=== PATIENT | female | born 1960 | race Caucasian/White ===

== ENCOUNTER → 2017-06-04 | Outpatient (CLI) | payer OTHER ==
[~2017-06-04] MED LIST: ACID1TAB7 PO; AMIT25TA PO; ATOR10TA9 PO; AZAT50TA9 PO; CIPR500T87 PO; HYDR12.53 PO; LEVO500T47 PO; LISI1TAB3 PO; LISI1TAB7 PO; MAGN400T26 PO; MESA250C PO; MESA500C PO; METR500T8 PO; OMEP-110 PO
== END | disposition home or self-care (01) ==
LOC: CFH 11:17
PROVIDERS: ATTEND Family Medicine
DX: Z12.31 Encounter for screening mammogram for malignant neoplasm of breast (principal)
CPT/HCPCS: G0202

== ENCOUNTER 2018-01-28 13:18 | Inpatient (IN) | payer OTHER ==
[~2018-01-28] VITALS: Ht 160 cm; Wt 96.1 kg
[2018-01-28] MEDS ORDERED: AMIT150T PO (13:38)
[2018-01-28] MEDS ORDERED: ALLO300T PO (13:38)
[2018-01-28] MEDS ORDERED: SODIUM CHLORIDE 0.9% 1,000ML IVBOLUS ONE (14:30)
[2018-01-28] MEDS ORDERED: SODIUM CHLORIDE FLUSH 10ML SYR IVF ONE (14:30)
[2018-01-28 15:22] LABS: ANION GAP 11 mmol/L (5-15); CALCIUM 8.6 mg/dL (8.5-10.1); CHLORIDE 104 mmol/L (98-107); CREATININE 2.74 mg/dL (0.55-1.02)
[2018-01-28 16:31] LABS: CULTURE INDICATED? YES; MICROSCOPIC INDICATED
[2018-01-28 16:35] LABS: MEAN CORPUSCULAR HEMOGLOBIN 40.3 pg (27.0-34.8); MEAN CORPUSCULAR VOLUME 115.1 fL (80-100); MEAN PLATELET VOLUME 8.9 fL (7.4-10.4); RED BLOOD COUNT 1.18 x10^6/uL (3.82-5.3); RED CELL DISTRIBUTION WIDTH 17.5 % (9.6-15.2)
[2018-01-28 16:37] LABS: PLATELET COUNT 15 x10^3/uL (130-400)
[2018-01-28 16:38] LABS: HEMOGRAM NOTE RECHECKED
[2018-01-28 16:40] LABS: MD YES
[2018-01-28 16:47] LABS: <PLATELET ESTIMATE> DECREASED; <PLT MORPHOLOGY> NORMAL PLT MORPH; BAND#(MANUAL) 0.12 x10^3/uL; BANDS%(MANUAL) 10 % (0-7); EOS#(MANUAL) 0.01 x10^3/uL (0.0-0.4); EOS% (MANUAL) 1 % (1-7); LYMPHS% (MANUAL) 33 % (22-44); METAMYELOCYTES# (MANUAL) 0.01 x10^3/uL (0-0); METAMYELOCYTES% (MANUAL) 1 % (0-1); MONOS#(MANUAL) 0.01 x10^3/uL (0.3-2.7); MONOS% (MANUAL) 1 % (2-9); SEG#(MANUAL) 0.65 x10^3/uL (1.8-6.8); SEGS% (MANUAL) 54 % (42-75); TOXIC GRAN 2+
[2018-01-28 16:48] LABS: ANISOCYTOSIS 1+
[2018-01-28 17:43] LABS: INTERNATIONAL NORMALIZED RATIO 1.01 (0.93-1.1); PROTHROMBIN TIME 10.5 Seconds (9.6-11.5)
[2018-01-28] MEDS ORDERED: ONDANSETRON 2MG/ML, 2ML IVPush PRN (18:00)
[2018-01-28] MEDS ORDERED: POLYETHYLENE GLYCOL 17 GM PACKET PO PRN (18:00)
[2018-01-28] MEDS ORDERED: NOREPINEPHRINE 4 MG in SODIUM CHLORIDE 0.9% 246 ML IV PRN (18:00)
[2018-01-28] MEDS ORDERED: BISACODYL 10 MG SUPP PR PRN (18:00)
[2018-01-28 18:19] VITALS: BP 105/53
[2018-01-28 18:31] VITALS: BP 96/56
[2018-01-28] MEDS ORDERED: MEROPENEM 1 GM in SODIUM CHLORIDE 0.9% 100 ML IV ONE (20:00)
[2018-01-28 20:24] VITALS: BP 110/57
[2018-01-28 20:28] VITALS: BP 107/58
[2018-01-28 20:45] VITALS: BP 100/54
[2018-01-28] MEDS: LINEZOLID PMX 600MG/300ML 300 ML IV SCH (22:08)
[2018-01-28] MEDS: SODIUM CHLORIDE 0.9% 1,000 ML IV SCH (22:08)
[2018-01-28 22:27] VITALS: BP 125/56
[2018-01-29 03:30] VITALS: BP 118/71
[2018-01-29 04:09] LABS: CLOSTRIDIUM DIFFICILE ANTIGEN NEGATIVE; CLOSTRIDIUM DIFFICILE TOXIN NEGATIVE (Negative)
[2018-01-29] MEDS: LINEZOLID PMX 600MG/300ML 300 ML IV SCH ×2 (05:38→18:27)
[2018-01-29] MEDS: ACETAMINOPHEN 325 MG TABLET PO PRN (06:23)
[2018-01-29 07:07] LABS: ALANINE AMINOTRANSFERASE 13 U/L (12-78); ALBUMIN 2.4 g/dL (3.4-5.0); ANION GAP 8 mmol/L (5-15); CALCIUM 8.1 mg/dL (8.5-10.1); CHLORIDE 107 mmol/L (98-107)
[2018-01-29 07:10] LABS: ALKALINE PHOSPHATASE 137 U/L (45-117); BILIRUBIN,TOTAL 2.1 mg/dL (0.2-1.0); TOTAL PROTEIN 6.2 g/dL (6.4-8.2)
[2018-01-29 07:11] LABS: MEAN CORPUSCULAR HGB CONC 35.9 g/dL (32.4-35.8); MEAN CORPUSCULAR VOLUME 100.4 fL (80-100); MEAN PLATELET VOLUME 8.8 fL (7.4-10.4); RED BLOOD COUNT 1.98 x10^6/uL (3.82-5.3)
[2018-01-29 07:14] LABS: MD YES
[2018-01-29 07:16] LABS: PLATELET COUNT 18 x10^3/uL (130-400)
[2018-01-29 07:21] LABS: LYMPH#(MANUAL) 0.61 x10^3/uL (1-3.4); LYMPHS% (MANUAL) 51 % (22-44)
[2018-01-29 07:22] LABS: ANISOCYTOSIS 2+; BAND#(MANUAL) 0.02 x10^3/uL; BANDS%(MANUAL) 2 % (0-7); EOS#(MANUAL) 0.05 x10^3/uL (0.0-0.4); EOS% (MANUAL) 4 % (1-7); SEG#(MANUAL) 0.52 x10^3/uL (1.8-6.8); SEGS% (MANUAL) 43 % (42-75)
[2018-01-29 07:23] LABS: <PLATELET ESTIMATE> DECREASED; <PLT MORPHOLOGY> NORMAL PLT MORPH; TOXIC GRAN 2+
[2018-01-29] MEDS: PANTOPRAZOLE 40 MG IV IVPush SCH (09:09)
[2018-01-29] MEDS: MEROPENEM 1 GM in SODIUM CHLORIDE 0.9% 100 ML IV SCH ×2 (09:09→22:33)
[2018-01-29 11:04] LABS: ABSOLUTE RETICS # 0.034 x10^6/uL (0.5-2.5); RETICULOCYTE COUNT % 1.7 % (0.5-1.5)
[2018-01-29 11:06] LABS: RED BLOOD COUNT 1.99 x10^6/uL (3.82-5.3)
[2018-01-29] MEDS ORDERED: MIDAZOLAM 1 MG/ML, 5ML ONE ×2 (11:17→11:18)
[2018-01-29] MEDS ORDERED: FENTANYL PF 100 MCG/2ML ONE (11:17)
[2018-01-29] MEDS ORDERED: NALOXONE 1 MG/ML, 2ML ONE (11:18)
[2018-01-29] MEDS ORDERED: FLUMAZENIL 0.1 MG/1 ML, 5ML ONE (11:18)
[2018-01-29] MEDS ORDERED: LIDOCAINE-MPF 2% ,5ML ONE (11:27)
[2018-01-29 11:37] LABS: FOLATE LEVEL 9.7 ng/mL (3.1-17.5); THYROID STIMULATING HORMONE 0.426 mIU/L (0.358-3.740)
[2018-01-29 13:47] LABS: ANA SCREEN POSITIVE (Negative); ANTI-NUCLEAR ANTIBODY PATTERN HOMOGENOUS
[2018-01-29] MEDS: SODIUM CHLORIDE 0.9% 1,000 ML IV SCH (18:29)
[2018-01-29] MEDS ORDERED: DIPHENHYDRAMINE 50 MG/ML, 1ML IVPush ONE (20:00)
[2018-01-29] MEDS ORDERED: ACETAMINOPHEN 325 MG TABLET PO ONE (20:00)
[2018-01-29 21:18] VITALS: BP 106/57
[2018-01-29 22:43] VITALS: BP 99/63
[2018-01-29 23:04] VITALS: BP 93/60
[2018-01-29 23:19] VITALS: BP 92/60
[2018-01-30 00:55] VITALS: BP 90/56
[2018-01-30 02:01] VITALS: BP 90/61
[2018-01-30 02:29] VITALS: BP 90/61
[2018-01-30] MEDS: SODIUM CHLORIDE 0.9% 1,000 ML IV SCH (04:50)
[2018-01-30] MEDS: PANTOPRAZOLE 40 MG IV IVPush SCH (07:57)
[2018-01-30] MEDS: LINEZOLID PMX 600MG/300ML 300 ML IV SCH (07:58)
[2018-01-30 08:12] VITALS: BP 103/70
[2018-01-30 08:32] LABS: ALANINE AMINOTRANSFERASE 13 U/L (12-78); ALBUMIN 2.3 g/dL (3.4-5.0); ANION GAP 7 mmol/L (5-15); CALCIUM 7.8 mg/dL (8.5-10.1); CHLORIDE 110 mmol/L (98-107); CREATININE 1.51 mg/dL (0.55-1.02)
[2018-01-30 08:34] LABS: ALKALINE PHOSPHATASE 134 U/L (45-117); BILIRUBIN,TOTAL 1.6 mg/dL (0.2-1.0); TOTAL PROTEIN 5.9 g/dL (6.4-8.2)
[2018-01-30 08:43] LABS: MEAN CORPUSCULAR HEMOGLOBIN 35.2 pg (27.0-34.8); MEAN CORPUSCULAR HGB CONC 35.6 g/dL (32.4-35.8); RED BLOOD COUNT 2.16 x10^6/uL (3.82-5.3); RED CELL DISTRIBUTION WIDTH 23.5 % (9.6-15.2)
[2018-01-30 08:46] LABS: PLATELET COUNT 13 x10^3/uL (130-400)
[2018-01-30 08:47] LABS: MD YES
[2018-01-30 08:51] LABS: SEG#(MANUAL) 0.49 x10^3/uL (1.8-6.8); SEGS% (MANUAL) 49 % (42-75)
[2018-01-30 08:52] LABS: <PLATELET ESTIMATE> DECREASED; ANISOCYTOSIS 2+; EOS#(MANUAL) 0.05 x10^3/uL (0.0-0.4); EOS% (MANUAL) 5 % (1-7); LYMPH#(MANUAL) 0.44 x10^3/uL (1-3.4); LYMPHS% (MANUAL) 44 % (22-44); MONOS#(MANUAL) 0.02 x10^3/uL (0.3-2.7); MONOS% (MANUAL) 2 % (2-9)
[2018-01-30 08:53] LABS: <PLT MORPHOLOGY> NORMAL PLT MORPH; TOXIC GRAN 2+
[2018-01-30] MEDS ORDERED: STERILE WATER IV ONE (09:30)
[2018-01-30] MEDS ORDERED: MAGNESIUM SULFATE IV ONE (09:30)
[2018-01-30] MEDS: MEROPENEM 1 GM in SODIUM CHLORIDE 0.9% 100 ML IV SCH (10:19)
[2018-01-30 13:32] VITALS: BP 100/66
[2018-01-30 19:41] VITALS: BP 106/66
[2018-01-30] MEDS: LIDODERM 5% PATCH TD SCH (20:31)
[2018-01-30] MEDS: CEFTRIAXONE PMX 2GM/50ML 50 ML IV SCH (20:31)
[2018-01-31 00:57] VITALS: BP 92/56
[2018-01-31 04:24] LABS: MEAN CORPUSCULAR HEMOGLOBIN 35.6 pg (27.0-34.8); MEAN CORPUSCULAR HGB CONC 35.9 g/dL (32.4-35.8); MEAN CORPUSCULAR VOLUME 99.3 fL (80-100); MEAN PLATELET VOLUME 9.2 fL (7.4-10.4); RED BLOOD COUNT 2.05 x10^6/uL (3.82-5.3); RED CELL DISTRIBUTION WIDTH 23.6 % (9.6-15.2)
[2018-01-31 04:32] LABS: CHLORIDE 107 mmol/L (98-107)
[2018-01-31 04:40] LABS: ALANINE AMINOTRANSFERASE 14 U/L (12-78); ALBUMIN 2.2 g/dL (3.4-5.0); ALKALINE PHOSPHATASE 164 U/L (45-117); ANION GAP 10 mmol/L (5-15); CREATININE 1.28 mg/dL (0.55-1.02); TOTAL PROTEIN 5.8 g/dL (6.4-8.2)
[2018-01-31 04:44] LABS: PLATELET COUNT 14 x10^3/uL (130-400)
[2018-01-31 04:45] LABS: MD YES
[2018-01-31 05:56] LABS: <PLATELET ESTIMATE> DECREASED; ANISOCYTOSIS 2+; BAND#(MANUAL) 0.01 x10^3/uL; BANDS%(MANUAL) 1 % (0-7); EOS#(MANUAL) 0.07 x10^3/uL (0.0-0.4); EOS% (MANUAL) 6 % (1-7); LYMPH#(MANUAL) 0.62 x10^3/uL (1-3.4); LYMPHS% (MANUAL) 56 % (22-44); SEG#(MANUAL) 0.41 x10^3/uL (1.8-6.8); SEGS% (MANUAL) 37 % (42-75); TOXIC GRAN 2+
[2018-01-31 05:57] LABS: <PLT MORPHOLOGY> NORMAL PLT MORPH
[2018-01-31 07:20] VITALS: BP 95/54
[2018-01-31] MEDS: PANTOPRAZOLE 40 MG IV IVPush SCH (07:54)
[2018-01-31] MEDS: predniSONE 50MG TABLET PO SCH (13:16)
[2018-01-31 14:00] VITALS: BP 108/59
[2018-01-31 20:30] VITALS: BP 104/68
[2018-01-31] MEDS: CEFTRIAXONE PMX 2GM/50ML 50 ML IV SCH (20:41)
[2018-01-31] MEDS: LIDODERM 5% PATCH TD SCH (20:42)
[2018-02-01 02:30] VITALS: BP 108/69
[2018-02-01 04:42] LABS: MEAN CORPUSCULAR HEMOGLOBIN 34.2 pg (27.0-34.8); MEAN CORPUSCULAR HGB CONC 34.5 g/dL (32.4-35.8); RED BLOOD COUNT 2.31 x10^6/uL (3.82-5.3); RED CELL DISTRIBUTION WIDTH 23.1 % (9.6-15.2)
[2018-02-01 04:43] LABS: PLATELET COUNT 14 x10^3/uL (130-400)
[2018-02-01 04:44] LABS: ALBUMIN 2.2 g/dL (3.4-5.0); ANION GAP 7 mmol/L (5-15); CALCIUM 8.6 mg/dL (8.5-10.1); CHLORIDE 109 mmol/L (98-107)
[2018-02-01 04:48] LABS: ALANINE AMINOTRANSFERASE 18 U/L (12-78); ALKALINE PHOSPHATASE 202 U/L (45-117); BILIRUBIN,TOTAL 0.8 mg/dL (0.2-1.0); CREATININE 1.14 mg/dL (0.55-1.02); TOTAL PROTEIN 6.4 g/dL (6.4-8.2)
[2018-02-01 05:35] LABS: MD YES
[2018-02-01 05:40] LABS: EOS#(MANUAL) 0.01 x10^3/uL (0.0-0.4); EOS% (MANUAL) 2 % (1-7); LYMPH#(MANUAL) 0.24 x10^3/uL (1-3.4); LYMPHS% (MANUAL) 40 % (22-44); SEG#(MANUAL) 0.35 x10^3/uL (1.8-6.8); SEGS% (MANUAL) 58 % (42-75)
[2018-02-01 05:41] LABS: <PLATELET ESTIMATE> DECREASED; <PLT MORPHOLOGY> NORMAL PLT MORPH; ANISOCYTOSIS 1+
[2018-02-01 07:25] VITALS: BP 110/74
[2018-02-01] MEDS: PANTOPRAZOLE 40 MG IV IVPush SCH (08:01)
[2018-02-01] MEDS: predniSONE 50MG TABLET PO SCH (12:32)
[2018-02-01 14:51] VITALS: BP 101/68
[2018-02-01 19:49] VITALS: BP 114/68
[2018-02-01] MEDS: CEFTRIAXONE PMX 2GM/50ML 50 ML IV SCH (20:41)
[2018-02-01] MEDS: LIDODERM 5% PATCH TD SCH (20:41)
[2018-02-02 04:26] LABS: ANION GAP 9 mmol/L (5-15); CALCIUM 8.6 mg/dL (8.5-10.1); CHLORIDE 111 mmol/L (98-107); CREATININE 1.06 mg/dL (0.55-1.02)
[2018-02-02 04:36] LABS: MEAN CORPUSCULAR HEMOGLOBIN 34.8 pg (27.0-34.8); MEAN CORPUSCULAR HGB CONC 34.8 g/dL (32.4-35.8); MEAN CORPUSCULAR VOLUME 100.1 fL (80-100); RED CELL DISTRIBUTION WIDTH 22.6 % (9.6-15.2)
[2018-02-02 05:39] LABS: MD YES
[2018-02-02 05:41] LABS: MEAN PLATELET VOLUME 9.2 fL (7.4-10.4)
[2018-02-02 05:42] LABS: PLATELET COUNT 19 x10^3/uL (130-400)
[2018-02-02 05:46] LABS: <PLATELET ESTIMATE> DECREASED; <PLT MORPHOLOGY> NORMAL PLT MORPH; ANISOCYTOSIS 1+; BAND#(MANUAL) 0.01 x10^3/uL; BANDS%(MANUAL) 1 % (0-7); LYMPH#(MANUAL) 0.31 x10^3/uL (1-3.4); LYMPHS% (MANUAL) 31 % (22-44); MONOS#(MANUAL) 0.02 x10^3/uL (0.3-2.7); MONOS% (MANUAL) 2 % (2-9); SEG#(MANUAL) 0.66 x10^3/uL (1.8-6.8); SEGS% (MANUAL) 66 % (42-75)
[2018-02-02 06:08] VITALS: BP 95/66
[2018-02-02 07:49] VITALS: BP 121/82
[2018-02-02] MEDS: PANTOPRAZOLE 40 MG IV IVPush SCH (07:54)
[2018-02-02] MEDS ORDERED: MAGNESIUM SULFATE PMX 2GM/50ML 50 ML IV ONE (09:00)
[2018-02-02] MEDS: predniSONE 50MG TABLET PO SCH (12:34)
[2018-02-02 16:56] VITALS: BP 110/77
[2018-02-02 19:43] VITALS: BP 114/71
[2018-02-02] MEDS: LIDODERM 5% PATCH TD SCH (20:30)
[2018-02-02] MEDS: CEFTRIAXONE PMX 2GM/50ML 50 ML IV SCH (21:09)
[2018-02-03 04:16] VITALS: BP 109/63
[2018-02-03 04:37] LABS: ANION GAP 6 mmol/L (5-15); CALCIUM 8.5 mg/dL (8.5-10.1); CHLORIDE 112 mmol/L (98-107)
[2018-02-03 04:38] LABS: CREATININE 1.03 mg/dL (0.55-1.02)
[2018-02-03 04:42] LABS: MEAN CORPUSCULAR HEMOGLOBIN 34.8 pg (27.0-34.8); MEAN CORPUSCULAR VOLUME 99.5 fL (80-100); MEAN PLATELET VOLUME 9.6 fL (7.4-10.4); RED BLOOD COUNT 2.19 x10^6/uL (3.82-5.3); RED CELL DISTRIBUTION WIDTH 21.8 % (9.6-15.2)
[2018-02-03 04:44] LABS: PLATELET COUNT 20 x10^3/uL (130-400)
[2018-02-03 05:47] LABS: MD YES
[2018-02-03 05:49] LABS: LYMPHS% (MANUAL) 44 % (22-44); SEGS% (MANUAL) 56 % (42-75)
[2018-02-03 05:54] LABS: <PLATELET ESTIMATE> DECREASED; <PLT MORPHOLOGY> NORMAL PLT MORPH; ANISOCYTOSIS 1+
[2018-02-03] MEDS: PANTOPRAZOLE 40 MG IV IVPush SCH (08:38)
[2018-02-03 08:59] VITALS: BP 121/79
[2018-02-03] MEDS: predniSONE 50MG TABLET PO SCH (13:37)
[2018-02-03 15:15] VITALS: BP 109/73
[2018-02-03 19:45] VITALS: BP 105/74
[2018-02-03] MEDS: LIDODERM 5% PATCH TD SCH (20:30)
[2018-02-04 02:00] VITALS: BP 107/73
[2018-02-04 04:53] LABS: ANION GAP 7 mmol/L (5-15); CALCIUM 8.8 mg/dL (8.5-10.1); CHLORIDE 111 mmol/L (98-107); CREATININE 0.99 mg/dL (0.55-1.02)
[2018-02-04 04:57] LABS: MEAN CORPUSCULAR HEMOGLOBIN 34.3 pg (27.0-34.8); MEAN CORPUSCULAR HGB CONC 34.5 g/dL (32.4-35.8); MEAN CORPUSCULAR VOLUME 99.3 fL (80-100); MEAN PLATELET VOLUME 8.8 fL (7.4-10.4); RED BLOOD COUNT 2.21 x10^6/uL (3.82-5.3); RED CELL DISTRIBUTION WIDTH 22.2 % (9.6-15.2)
[2018-02-04 04:58] LABS: PLATELET COUNT 27 x10^3/uL (130-400)
[2018-02-04 05:49] LABS: MD YES
[2018-02-04 05:54] LABS: ANISOCYTOSIS 1+; BAND#(MANUAL) 0.02 x10^3/uL; BANDS%(MANUAL) 2 % (0-7); BASOS#(MANUAL) 0.02 x10^3/uL (0-0.1); BASOS% (MANUAL) 2 % (0-1); EOS#(MANUAL) 0.02 x10^3/uL (0.0-0.4); EOS% (MANUAL) 2 % (1-7); LYMPH#(MANUAL) 0.32 x10^3/uL (1-3.4); LYMPHS% (MANUAL) 36 % (22-44); MONOS#(MANUAL) 0.04 x10^3/uL (0.3-2.7); MONOS% (MANUAL) 4 % (2-9); SEG#(MANUAL) 0.49 x10^3/uL (1.8-6.8); SEGS% (MANUAL) 54 % (42-75)
[2018-02-04 05:55] LABS: <PLATELET ESTIMATE> DECREASED; <PLT MORPHOLOGY> NORMAL PLT MORPH
[2018-02-04 05:56] LABS: TOXIC GRAN 1+
[2018-02-04 07:25] VITALS: BP 128/82
[2018-02-04] MEDS ORDERED: SODIUM POLY SULFONATE UDC 15 GM/60 ML PO ONE (07:30)
[2018-02-04] MEDS: PANTOPRAZOLE 40 MG IV IVPush SCH (07:54)
[2018-02-04] MEDS: ALLOPURINOL 100 MG TABLET PO SCH (08:46)
[2018-02-04 13:43] VITALS: BP 115/79
[2018-02-04 20:29] VITALS: BP 107/74
[2018-02-04] MEDS: LIDODERM 5% PATCH TD SCH (20:30)
[2018-02-05 02:01] VITALS: BP 109/72
[2018-02-05 04:56] LABS: MEAN CORPUSCULAR HGB CONC 34.3 g/dL (32.4-35.8); MEAN CORPUSCULAR VOLUME 99.2 fL (80-100); RED BLOOD COUNT 2.37 x10^6/uL (3.82-5.3); RED CELL DISTRIBUTION WIDTH 22.6 % (9.6-15.2)
[2018-02-05 05:03] LABS: ALANINE AMINOTRANSFERASE 87 U/L (12-78); ALBUMIN 2.3 g/dL (3.4-5.0); ANION GAP 9 mmol/L (5-15); CALCIUM 7.9 mg/dL (8.5-10.1); CHLORIDE 110 mmol/L (98-107); CREATININE 1.39 mg/dL (0.55-1.02)
[2018-02-05 05:04] LABS: ALKALINE PHOSPHATASE 213 U/L (45-117); BILIRUBIN,TOTAL 0.5 mg/dL (0.2-1.0)
[2018-02-05 05:42] LABS: MD YES; MEAN PLATELET VOLUME 8.4 fL (7.4-10.4); PLATELET COUNT 58 x10^3/uL (130-400)
[2018-02-05 05:46] LABS: BAND#(MANUAL) 0.02 x10^3/uL; BANDS%(MANUAL) 1 % (0-7); EOS#(MANUAL) 0.07 x10^3/uL (0.0-0.4); EOS% (MANUAL) 3 % (1-7); LYMPH#(MANUAL) 1.73 x10^3/uL (1-3.4); LYMPHS% (MANUAL) 75 % (22-44); METAMYELOCYTES# (MANUAL) 0.02 x10^3/uL (0-0); METAMYELOCYTES% (MANUAL) 1 % (0-1); MONOS#(MANUAL) 0.02 x10^3/uL (0.3-2.7); MONOS% (MANUAL) 1 % (2-9); NRBC % (MANUAL) 1 % (0-1); SEG#(MANUAL) 0.44 x10^3/uL (1.8-6.8); SEGS% (MANUAL) 19 % (42-75)
[2018-02-05 05:47] LABS: <PLATELET ESTIMATE> DECREASED; <PLT MORPHOLOGY> NORMAL PLT MORPH; ANISOCYTOSIS 1+; TOXIC GRAN 1+
[2018-02-05 07:46] VITALS: BP 116/76
[2018-02-05] MEDS: ALLOPURINOL 100 MG TABLET PO SCH (08:28)
[2018-02-05] MEDS: PANTOPRAZOLE 40 MG IV IVPush SCH (08:28)
[2018-02-05] MEDS: ACETAMINOPHEN 325 MG TABLET PO PRN (08:29)
[2018-02-05] MEDS ORDERED: COLCHICINE 0.6 MG TABLET PO SCH (12:30)
[2018-02-05 15:00] VITALS: BP 105/74
[2018-02-05 19:48] VITALS: BP 119/79
[2018-02-05] MEDS: LIDODERM 5% PATCH TD SCH (19:55)
[2018-02-06 03:40] VITALS: BP 107/64
[2018-02-06 05:02] LABS: ANION GAP 9 mmol/L (5-15); CALCIUM 8.5 mg/dL (8.5-10.1); CHLORIDE 109 mmol/L (98-107); CREATININE 1.06 mg/dL (0.55-1.02)
[2018-02-06 05:03] LABS: MEAN CORPUSCULAR HEMOGLOBIN 34.4 pg (27.0-34.8); MEAN CORPUSCULAR HGB CONC 34.7 g/dL (32.4-35.8); MEAN CORPUSCULAR VOLUME 99.2 fL (80-100); RED BLOOD COUNT 2.13 x10^6/uL (3.82-5.3)
[2018-02-06 05:27] LABS: MD YES
[2018-02-06 05:28] LABS: MEAN PLATELET VOLUME 8.9 fL (7.4-10.4); PLATELET COUNT 83 x10^3/uL (130-400)
[2018-02-06 05:33] LABS: <PLATELET ESTIMATE> DECREASED; <PLT MORPHOLOGY> NORMAL PLT MORPH; ANISOCYTOSIS 1+; LYMPH#(MANUAL) 1.58 x10^3/uL (1-3.4); LYMPHS% (MANUAL) 72 % (22-44); MONOS#(MANUAL) 0.13 x10^3/uL (0.3-2.7); MONOS% (MANUAL) 6 % (2-9); SEG#(MANUAL) 0.48 x10^3/uL (1.8-6.8); SEGS% (MANUAL) 22 % (42-75); TOXIC GRAN 1+
[2018-02-06 08:16] VITALS: BP 117/77
[2018-02-06] MEDS: ALLOPURINOL 100 MG TABLET PO SCH (09:16)
[2018-02-06] MEDS: PANTOPRAZOLE 40 MG IV IVPush SCH (09:16)
[2018-02-06 13:51] VITALS: BP 108/71
[2018-02-06 19:36] VITALS: BP 100/60
[2018-02-06] MEDS: LIDODERM 5% PATCH TD SCH (21:55)
[2018-02-07 02:50] VITALS: BP 112/76
[2018-02-07] MEDS: ALLOPURINOL 100 MG TABLET PO SCH (07:20)
[2018-02-07] MEDS ORDERED: PANTOPROZOLE 40MG TABLET PO SCH (07:30)
[2018-02-07 07:45] VITALS: BP 104/71
[2018-02-07 09:18] LABS: MEAN CORPUSCULAR HEMOGLOBIN 33.6 pg (27.0-34.8); MEAN CORPUSCULAR HGB CONC 33.9 g/dL (32.4-35.8); MEAN CORPUSCULAR VOLUME 99.1 fL (80-100); RED BLOOD COUNT 2.28 x10^6/uL (3.82-5.3); RED CELL DISTRIBUTION WIDTH 22.1 % (9.6-15.2)
[2018-02-07] MEDS ORDERED: ALLO100T30 PO (09:24)
[2018-02-07 09:27] LABS: ALANINE AMINOTRANSFERASE 55 U/L (12-78); ALBUMIN 2.3 g/dL (3.4-5.0); ANION GAP 8 mmol/L (5-15); CALCIUM 8.5 mg/dL (8.5-10.1); CHLORIDE 107 mmol/L (98-107); CREATININE 1.24 mg/dL (0.55-1.02)
[2018-02-07 09:29] LABS: ALKALINE PHOSPHATASE 199 U/L (45-117); BILIRUBIN,TOTAL 0.7 mg/dL (0.2-1.0); TOTAL PROTEIN 6.3 g/dL (6.4-8.2)
[2018-02-07 09:38] LABS: MEAN PLATELET VOLUME 8.5 fL (7.4-10.4); PLATELET COUNT 125 x10^3/uL (130-400)
[2018-02-07 09:40] LABS: MD YES
[2018-02-07 09:43] LABS: MONOS#(MANUAL) 0.13 x10^3/uL (0.3-2.7); MONOS% (MANUAL) 6 % (2-9)
[2018-02-07 09:44] LABS: <PLATELET ESTIMATE> DECREASED; <PLT MORPHOLOGY> NORMAL PLT MORPH; ANISOCYTOSIS 1+; LYMPH#(MANUAL) 1.52 x10^3/uL (1-3.4); LYMPHS% (MANUAL) 69 % (22-44); SEG#(MANUAL) 0.55 x10^3/uL (1.8-6.8); SEGS% (MANUAL) 25 % (42-75)
[2018-02-07 09:45] LABS: TOXIC GRAN 1+
[2018-02-07 13:41] VITALS: BP 112/75
== END 2018-02-07 15:15 | disposition home or self-care (01) | DRG 871 ==
LOC: ED 16:48 → EDIP 17:41 → CCU 18:57 → 3NW 01-29 18:52
PROVIDERS: ADMIT Hospitalist; ATTEND Hospitalist
PROC: 30233N1 Transfusion of Nonautologous Red Blood Cells into Peripheral Vein, Percutaneous Approach (ICD-10-PCS; principal; 2018-01-28)
PROC: 02HV33Z Insertion of Infusion Device into Superior Vena Cava, Percutaneous Approach (ICD-10-PCS; 2018-01-28)
PROC: 07DR3ZX Extraction of Iliac Bone Marrow, Percutaneous Approach, Diagnostic (ICD-10-PCS; 2018-01-29)
DX: A41.9 Sepsis, unspecified organism (principal); D61.1 Drug-induced aplastic anemia; N17.0 Acute kidney failure with tubular necrosis; K50.90 Crohn's disease, unspecified, without complications; B19.10 Unspecified viral hepatitis B without hepatic coma; N39.0 Urinary tract infection, site not specified; D69.59 Other secondary thrombocytopenia; E78.5 Hyperlipidemia, unspecified; I12.9 Hypertensive chronic kidney disease with stage 1 through stage 4 chronic kidney disease, or unspecified chronic kidney disease; K21.9 Gastro-esophageal reflux disease without esophagitis; M10.9 Gout, unspecified; N18.9 Chronic kidney disease, unspecified; B96.1 Klebsiella pneumoniae [K. pneumoniae] as the cause of diseases classified elsewhere; B19.20 Unspecified viral hepatitis C without hepatic coma; T50.905A Adverse effect of unspecified drugs, medicaments and biological substances, initial encounter; W18.30XA Fall on same level, unspecified, initial encounter; Y92.89 Other specified places as the place of occurrence of the external cause; Y93.89 Activity, other specified; Y99.2 Volunteer activity; Z85.41 Personal history of malignant neoplasm of cervix uteri; Z87.891 Personal history of nicotine dependence
CPT/HCPCS: 36415; 36569; 38222; 71045; 76770; 77012; 80048; 80053; 81001; 82040; 82607; 82728; 82746; 82784; 83010; 83540; 83550; 83605; 83615; 83735; 84100; 84145; 84155; 84165; 84443; 84550; 85014; 85018; 85025; 85045; 85060; 85097; 85384; 85610; 85651; 85730; 86038; 86039; 86078; 86430; 86705; 86706; 86803; 86850; 86900; 86923; 87040; 87077; 87081; 87086; 87186; 87205; 87324; 87340; 87806; 88237; 88264; 88280; 88305; 88311; 88313; 93005; 99156; 99157; 99291; J0696; J2020; J2185; J2250; J3010; J3475; J3490; C9113; G0475; J1200; J2310; J7030; J7512; P9040

== ENCOUNTER 2019-01-18 10:25 | Outpatient (CLI) | payer OTHER ==
[~2019-01-18 10:25] MED LIST changes: +ALLO100T30 PO; +ALLO300T PO; +AMIT150T PO; +HYDR12.517 PO; -HYDR12.53 PO; +METR-90 PO; -METR500T8 PO
[2019-01-18] MEDS ORDERED: RANI150T23 PO (11:10)
[2019-01-18] MEDS ORDERED: ACET-1600 PO (11:10)
== END 2019-01-18 23:59 | disposition home or self-care (01) ==
LOC: STAR 10:25
PROVIDERS: ATTEND Obstetrics & Gynecology Gynecology
DX: Z02.9 Encounter for administrative examinations, unspecified (principal)

== ENCOUNTER 2019-01-28 06:52 | Inpatient (IN) | payer OTHER ==
[~2019-01-28] VITALS: Ht 162.6 cm; Wt 107.0 kg
[~2019-01-28 06:52] MED LIST changes: +ACET-1600 PO; +RANI150T23 PO
[2019-01-28 07:31] VITALS: BP 162/93
[2019-01-28] MEDS ORDERED: LACTATED RINGERS 1,000 ML IV SCH (07:33)
[2019-01-28] MEDS ORDERED: AMIT150T PO (07:35)
[2019-01-28] MEDS ORDERED: GENTAMICIN 200 MG in SODIUM CHLORIDE 0.9% 50 ML IV ONE (08:30)
[2019-01-28] MEDS ORDERED: CLINDAMYCIN PMX 900MG/50ML 50 ML IVPB ONE (08:30)
[2019-01-28] MEDS ORDERED: FENTANYL PF 250 MCG/5ML ONE (08:58)
[2019-01-28] MEDS ORDERED: MIDAZOLAM 1 MG/ML, 2ML ONE (08:58)
[2019-01-28] MEDS ORDERED: LIDOCAINE-MPF 2% ,5ML ONE (09:06)
[2019-01-28] MEDS ORDERED: PROMETHAZINE 25 MG/ML, 1ML IV PRN (09:30)
[2019-01-28] MEDS ORDERED: LORazepam 2 MG/ML, 1ML IVPush PRN (09:30)
[2019-01-28] MEDS ORDERED: PROMETHAZINE 25 MG SUPP PR PRN (09:30)
[2019-01-28] MEDS ORDERED: FENTANYL PF 100 MCG/2ML IV PRN (09:30)
[2019-01-28] MEDS ORDERED: ONDANSETRON 2MG/ML, 2ML IV PRN ×2 (09:30→15:00)
[2019-01-28] MEDS ORDERED: DIAZEPAM 5 MG/ML, 2ML IVPush PRN (09:30)
[2019-01-28] MEDS ORDERED: OXYcodone 5 MG/5 ML ORAL.SOL UDC PO PRN (09:30)
[2019-01-28] MEDS ORDERED: ACETAMINOPHEN 325 MG TABLET PO PRN (09:30)
[2019-01-28] MEDS ORDERED: ONDANSETRON ODT 8 MG PO PRN (09:30)
[2019-01-28] MEDS ORDERED: ONDANSETRON 2MG/ML, 2ML ONE (09:39)
[2019-01-28] MEDS ORDERED: NEOSTIGMINE 1 MG/ML, 10ML ONE (09:39)
[2019-01-28] MEDS ORDERED: PROPOFOL 10 MG/ML, 20ML ONE (09:39)
[2019-01-28] MEDS ORDERED: CEFAZOLIN 1,000 MG ONE (09:39)
[2019-01-28] MEDS ORDERED: DEXAMETHASONE 4 MG/ML, 1ML ONE (09:39)
[2019-01-28] MEDS ORDERED: GLYCOPYRROLATE 0.2MG/1ML, 5ML ONE (09:39)
[2019-01-28] MEDS ORDERED: ROCURONIUM 10MG/ML,5ML ONE (09:39)
[2019-01-28] MEDS ORDERED: SUCCINYLCHOLINE 20 MG/ML, 10ML ONE (09:39)
[2019-01-28] MEDS ORDERED: FENTANYL PF 100 MCG/2ML ONE ×2 (09:59→11:30)
[2019-01-28] MEDS ORDERED: PROPOFOL 50 ML ONE (10:16)
[2019-01-28] MEDS ORDERED: FLUORESCEIN SODIUM 500 MG/5 ML ONE (10:36)
[2019-01-28] MEDS ORDERED: HYDROmorphone 2 MG/ML, 1ML ONE (11:30)
[2019-01-28] MEDS: HYDROmorphone 2 MG/ML, 1ML IVPush PRN ×2 (11:35→12:00)
[2019-01-28] MEDS ORDERED: KETOROLAC 30 MG/1 ML ONE (11:56)
[2019-01-28] MEDS ORDERED: KETOROLAC 30 MG/1 ML IVPush STA (11:57)
[2019-01-28] MEDS ORDERED: OXYcodone 5 MG/5 ML ORAL.SOL UDC ONE (12:06)
[2019-01-28] MEDS ORDERED: KETOROLAC 30 MG/1 ML IVPush ONE (12:30)
[2019-01-28 13:52] VITALS: BP 157/94
[2019-01-28] MEDS ORDERED: INSTRUCTION SEE COMMENTS XX PRN (15:00)
[2019-01-28] MEDS: IBUPROFEN 600 MG TABLET PO SCH ×2 (15:13→22:44)
[2019-01-28] MEDS ORDERED: morphine SULFATE 10 MG/ML, 1ML IV PRN (16:00)
[2019-01-28] MEDS: DOCUSATE 100 MG CAPSULE PO SCH (21:00)
[2019-01-28 21:15] VITALS: BP 132/77
[2019-01-28] MEDS: LACTATED RINGERS 1,000 ML IV SCH (22:44)
[2019-01-28] MEDS: ENOXAPARIN 40 MG/0.4 ML SQ SCH (22:44)
[2019-01-29 00:12] VITALS: BP 128/81
[2019-01-29 03:59] VITALS: BP 130/84
[2019-01-29] MEDS ORDERED: CLINDAMYCIN PMX 900MG/50ML 50 ML IVPB ONE (05:00)
[2019-01-29] MEDS: IBUPROFEN 600 MG TABLET PO SCH ×4 (05:47→21:25)
[2019-01-29] MEDS: OXYcodone/APAP 5/325MG TABLET PO PRN ×4 (05:47→20:06)
[2019-01-29 07:34] VITALS: BP 149/88
[2019-01-29] MEDS: DOCUSATE 100 MG CAPSULE PO SCH ×2 (08:41→21:25)
[2019-01-29] MEDS: LACTATED RINGERS 1,000 ML IV SCH ×2 (12:00→22:00)
[2019-01-29 13:34] VITALS: BP 115/71
[2019-01-29 18:44] VITALS: BP 121/77
[2019-01-29] MEDS: ENOXAPARIN 40 MG/0.4 ML SQ SCH (23:23)
[2019-01-30] MEDS: OXYcodone/APAP 5/325MG TABLET PO PRN ×5 (00:07→21:46)
[2019-01-30 00:26] VITALS: BP 122/71
[2019-01-30] MEDS: LACTATED RINGERS 1,000 ML IV SCH ×2 (04:44→16:59)
[2019-01-30] MEDS: IBUPROFEN 600 MG TABLET PO SCH ×2 (05:05→10:29)
[2019-01-30 05:35] LABS: CREATININE 2.11 mg/dL (0.55-1.02)
[2019-01-30 07:17] VITALS: BP 93/60
[2019-01-30] MEDS: DOCUSATE 100 MG CAPSULE PO SCH ×2 (08:44→19:42)
[2019-01-30 14:28] VITALS: BP 115/74
[2019-01-30 16:23] LABS: CALCIUM 8.6 mg/dL (8.5-10.1); CHLORIDE 106 mmol/L (98-107)
[2019-01-30 16:27] LABS: ALANINE AMINOTRANSFERASE 26 U/L (12-78); ALBUMIN 2.9 g/dL (3.4-5.0); ALKALINE PHOSPHATASE 79 U/L (45-117); ANION GAP 9 mmol/L (5-15); BILIRUBIN,TOTAL 0.6 mg/dL (0.2-1.0); CREATININE 2.49 mg/dL (0.55-1.02); TOTAL PROTEIN 6.8 g/dL (6.4-8.2)
[2019-01-30] MEDS ORDERED: PHARMACY MAY ADJ FOR RENAL FX MC PRN (19:30)
[2019-01-30] MEDS: LACTATED RINGERS 1,000 ML IV ONE ×2 (19:41→21:30)
[2019-01-30 20:11] VITALS: BP 112/64
[2019-01-30] MEDS ORDERED: ENOXAPARIN 30 MG/0.3 ML SQ SCH (23:00)
[2019-01-30 23:53] LABS: MICROSCOPIC NOT IND
[2019-01-30 23:57] LABS: CULTURE INDICATED? NO; POTASSIUM,URINE RANDOM 29 mmol/L; SODIUM,URINE RANDOM 26 mmol/L
[2019-01-31 00:01] LABS: CHLORIDE,URINE RANDOM < 10 mmol/L
[2019-01-31 02:26] VITALS: BP 132/82
[2019-01-31] MEDS: OXYcodone/APAP 5/325MG TABLET PO PRN ×5 (03:17→21:38)
[2019-01-31] MEDS: LACTATED RINGERS 1,000 ML IV SCH ×3 (03:18→23:08)
[2019-01-31 05:06] LABS: BASOPHILS # (AUTO) 0.03 x10^3/uL (0-0.1); BASOPHILS % (AUTO) 1 % (0-1); EOSINOPHILS # (AUTO) 0.07 x10^3/uL (0-0.4); EOSINOPHILS % (AUTO) 1 % (1-7); LYMPHOCYTES # (AUTO) 2.01 x10^3/uL (1-3.4); LYMPHOCYTES % (AUTO) 32 % (22-44); MD NO; MEAN CORPUSCULAR HEMOGLOBIN 35.4 pg (27.0-34.8); MEAN CORPUSCULAR HGB CONC 32.9 g/dL (32.4-35.8); MEAN CORPUSCULAR VOLUME 107.6 fL (80-100); MEAN PLATELET VOLUME 7.6 fL (7.4-10.4); MONOCYTES # (AUTO) 0.37 x10^3/uL (0.2-0.8); MONOCYTES % (AUTO) 6 % (2-9); NEUTROPHILS # (AUTO) 3.73 x10^3/uL (1.8-6.8); NEUTROPHILS % (AUTO) 60 % (42-75); PLATELET COUNT 147 x10^3/uL (130-400); RED BLOOD COUNT 3.11 x10^6/uL (3.82-5.3); RED CELL DISTRIBUTION WIDTH 16.8 % (9.6-15.2)
[2019-01-31 05:09] LABS: ANION GAP 9 mmol/L (5-15); CALCIUM 8.3 mg/dL (8.5-10.1); CHLORIDE 108 mmol/L (98-107); CREATININE 2.32 mg/dL (0.55-1.02)
[2019-01-31 06:27] VITALS: BP 143/70
[2019-01-31] MEDS: DOCUSATE 100 MG CAPSULE PO SCH ×2 (08:39→20:58)
[2019-01-31 13:56] VITALS: BP 154/79
[2019-01-31 20:25] VITALS: BP_SYST 134; BP_SYST 154; BP_DIAS 80
[2019-02-01] MEDS: OXYcodone/APAP 5/325MG TABLET PO PRN ×2 (02:37→09:28)
[2019-02-01 02:54] VITALS: BP 110/73
[2019-02-01 07:04] LABS: BASOPHILS # (AUTO) 0.03 x10^3/uL (0-0.1); BASOPHILS % (AUTO) 0 % (0-1); EOSINOPHILS # (AUTO) 0.05 x10^3/uL (0-0.4); EOSINOPHILS % (AUTO) 1 % (1-7); LYMPHOCYTES # (AUTO) 1.91 x10^3/uL (1-3.4); LYMPHOCYTES % (AUTO) 31 % (22-44); MD NO; MEAN CORPUSCULAR HEMOGLOBIN 34.5 pg (27.0-34.8); MEAN CORPUSCULAR HGB CONC 32.4 g/dL (32.4-35.8); MEAN CORPUSCULAR VOLUME 106.5 fL (80-100); MEAN PLATELET VOLUME 7.2 fL (7.4-10.4); MONOCYTES # (AUTO) 0.34 x10^3/uL (0.2-0.8); MONOCYTES % (AUTO) 6 % (2-9); NEUTROPHILS # (AUTO) 3.84 x10^3/uL (1.8-6.8); NEUTROPHILS % (AUTO) 62 % (42-75); PLATELET COUNT 166 x10^3/uL (130-400); RED BLOOD COUNT 3.17 x10^6/uL (3.82-5.3); RED CELL DISTRIBUTION WIDTH 17.6 % (9.6-15.2)
[2019-02-01 07:07] VITALS: BP 128/74
[2019-02-01 07:14] LABS: ANION GAP 7 mmol/L (5-15); CALCIUM 8.7 mg/dL (8.5-10.1); CHLORIDE 109 mmol/L (98-107); CREATININE 1.79 mg/dL (0.55-1.02)
[2019-02-01] MEDS: DOCUSATE 100 MG CAPSULE PO SCH (09:00)
[2019-02-01] MEDS: LACTATED RINGERS 1,000 ML IV SCH (09:30)
[2019-02-01 12:05] VITALS: BP 158/82
[2019-02-01] MEDS ORDERED: OXYC-302 PO (13:25)
== END 2019-02-01 14:25 | disposition home or self-care (01) | DRG 740 ==
LOC: ORIP 06:52 → 4NOR 13:18 → DCLOUNGE 02-01 14:07
PROVIDERS: ADMIT Obstetrics & Gynecology Gynecology; ATTEND Obstetrics & Gynecology Gynecology
PROC: 0UT70ZZ Resection of Bilateral Fallopian Tubes, Open Approach (ICD-10-PCS; 2019-01-28)
PROC: 0TJB8ZZ Inspection of Bladder, Via Natural or Artificial Opening Endoscopic (ICD-10-PCS; 2019-01-28)
PROC: 0UT90ZZ Resection of Uterus, Open Approach (ICD-10-PCS; principal; 2019-01-28 09:00)
PROC: 0T9B70Z Drainage of Bladder with Drainage Device, Via Natural or Artificial Opening (ICD-10-PCS; 2019-01-30)
DX: D06.9 Carcinoma in situ of cervix, unspecified (principal); Z68.41 Body mass index [BMI] 40.0-44.9, adult; K50.90 Crohn's disease, unspecified, without complications; N17.9 Acute kidney failure, unspecified; E66.01 Morbid (severe) obesity due to excess calories; N28.89 Other specified disorders of kidney and ureter; I12.9 Hypertensive chronic kidney disease with stage 1 through stage 4 chronic kidney disease, or unspecified chronic kidney disease; I48.91 Unspecified atrial fibrillation; M19.90 Unspecified osteoarthritis, unspecified site; K21.9 Gastro-esophageal reflux disease without esophagitis; M10.9 Gout, unspecified; F32.9 Major depressive disorder, single episode, unspecified; N18.9 Chronic kidney disease, unspecified; Z80.1 Family history of malignant neoplasm of trachea, bronchus and lung; Z82.49 Family history of ischemic heart disease and other diseases of the circulatory system; Z82.5 Family history of asthma and other chronic lower respiratory diseases; Z86.001 Personal history of in-situ neoplasm of cervix uteri; Z87.440 Personal history of urinary (tract) infections; Z87.891 Personal history of nicotine dependence; Z88.0 Allergy status to penicillin; Z88.8 Allergy status to other drugs, medicaments and biological substances; Z91.040 Latex allergy status; Z90.49 Acquired absence of other specified parts of digestive tract
CPT/HCPCS: 36415; J3490; 76700; 80048; 80053; 81003; 82436; 82565; 83735; 84100; 84133; 84300; 85014; 85018; 85025; 88309; G0378; J0690; J1100; J1170; J1650; J1885; J2250; J2270; J2405; J2704; J2710; J3010; J0330; J1580; J7120